=== PATIENT | female | born 1980 | race Caucasian/White ===

== ENCOUNTER 2018-12-13 12:24 | Observation (INO) | payer BC ==
[2018-12-13] MEDS ORDERED: PROTONIX 40 MG IV IV ONE ×2 (12:56→13:13)
[2018-12-13] MEDS ORDERED: MORPHINE SULFATE 2 MG INJ IV ONE (12:56)
[2018-12-13] MEDS ORDERED: Sodium Chloride 0.9% 1000 ML 1,000 ML IV STA ×2 (12:56→15:52)
[2018-12-13] MEDS ORDERED: TYLENOL 325 MG PO ONE (12:56)
[2018-12-13] MEDS ORDERED: Sodium Chloride 0.9% 1000 ML 1,000 ML ONE ×3 (13:14→20:01)
[2018-12-13] MEDS ORDERED: TYLENOL 325 MG ONE (13:14)
[2018-12-13] MEDS ORDERED: MORPHINE SULFATE 2 MG INJ ONE (13:14)
[2018-12-13 13:21] LABS: Appearance CLEAR (CLEAR); Bilirubin NEGATIVE (NEGATIVE); Blood SMALL Ery/ul (0-5); Epithelial Cells RARE /HPF (FEW); Glucose >=500 mg/dL (NEGATIVE); Ketones MODERATE (NEGATIVE); Leukocyte Esterase NEGATIVE (NEGATIVE); Mucus SLIGHT /HPF (NEGATIVE); Nitrite NEGATIVE (NEGATIVE); Protein,Urine Dip 100 (Negative); Specific Gravity 1.033 (1.005-1.025); Urobilinogen NEGATIVE mg/dL (0-1); WBC 0-2 /HPF (0-5)
[2018-12-13 13:27] LABS: Hemoglobin 13.2 gm/dl (12.0-16.0); Mean Cell Volume 82.8 fl (78-100); Mean Corpuscular Hemoglobin 28.8 pg (26-32); Mean Corpuscular Hgb Concent. 34.7 g/dl (32-36); Mean Platelet Volume 9.9 fl (6-9.5); Platelet Count 353 K/mm3 (150-450); Red Blood Count 4.59 M/mm3 (4.1-5.4); Red Cell Distribution Width 12.7 % (11.5-14.0); White Blood Count 21.9 K/mm3 (4.0-10.5)
[2018-12-13 13:32] LABS: ALBUMIN 4.1 g/dL (3.5-5.0); ALKALINE PHOSPHATASE 128 U/L (38-126); ANION GAP 17.5 MEQ/L (5-15); BLOOD UREA NITROGEN 15 mg/dL (7-17); CHLORIDE 97 mmol/L (98-107); Calcium 9.1 mg/dL (8.4-10.2); Carbon Dioxide 21 mmol/L (22-30); Creatinine 1 0.81 mg/dL (0.52-1.04); Glucose 418 mg/dL (74-106); LIPASE 20 U/L (23-300); SGOT/AST 16 U/L (14-36); SGPT/ALT 17 U/L (0-35); SODIUM 132 mmol/L (137-145); Total Protein 7.4 g/dL (6.3-8.2)
[2018-12-13 13:40] LABS: Bacteria NONE SEEN /HPF (NEGATIVE)
[2018-12-13] MEDS ORDERED: NovoLOG Insulin SQ STA (14:00)
[2018-12-13] MEDS ORDERED: NovoLOG Insulin ONE (14:04)
[2018-12-13 14:14] LABS: BAND 10 % (0.0-2.0); Lymphocytes 11 % (24-44); Monocyte 6 % (0.0-12.0); Neutrophils 73 % (36.0-66.0); Total Cells Counted 100
[2018-12-13 14:16] LABS: Platelet Estimate NORMAL (NORMAL)
[2018-12-13 14:17] LABS: Granulocyte Absolute (ANC) 18.19 (1.4-6.9)
--- NOTE | 2018-12-13 14:54 | XRAY ---
Exam: CT of the abdomen and pelvis with IV contrast from 12/13/2018. CTDI: 21.88 Comparison: None. Indication: 38-year-old female with diffuse abdominal pain, nausea, fever. Symptoms began last evening. No prior abdominal surgeries. Technique: Post-IV contrast axial images were obtained through the abdomen and pelvis during automated injection of 80 cc of Isovue-370 contrast material. No oral contrast was given. Reconstructed coronal and sagittal images were created and reviewed. Findings: The visualized lung bases appear clear. The heart size is within normal limits. The liver appears of unremarkable size and reveals a uniform attenuation. No hepatic mass or intrahepatic biliary duct distention is seen. The gallbladder is mildly distended and reveals no dense calcifications within it. No gallbladder wall thickening is seen. The spleen is of normal size and reveals no mass. The pancreas appears unremarkable. The adrenal glands appears of normal size and configuration. The kidneys are normal size and cortex thickness. No definite renal calculi, solid renal mass, or hydronephrosis is seen. The kidneys excrete contrast well on the delayed images. The opacified ureters appear unremarkable. No ureterolith is seen. Mild atherosclerotic vascular calcification is seen within the distal abdominal aorta. No abdominal aortic aneurysm or abnormal retroperitoneal lymphadenopathy is seen. There is no free intraperitoneal air. The anterior abdominal wall reveals minimal herniation of some intraperitoneal fat at the level the umbilicus on sagittal image #46. No bowel containing ventral hernia is seen. The appendix is seen at the inferior aspect of the cecum and contains some air within it. The appendix measures up to a maximum of about 6.5 mm in thickness. This is towards the upper limits of normal. I see no appendicolith, appendiceal wall thickening, or surrounding inflammatory change to suggest acute appendicitis. No abscess or abnormal fluid collection is seen. Some scattered stool is seen within the colon. No bowel distention or bowel wall thickening is seen. The uterus is anteflexed and tilted to the left of midline. Both ovaries are identified and are remarkable for a small cyst or follicle within the inferior portion of the right ovary measuring up to 1.6 cm in diameter on axial image #74 of series #2. Some calcified phleboliths are seen within the lower pelvis. The urinary bladder appears unremarkable. No free intraperitoneal fluid is seen. No enlarged pelvic lymph nodes are seen.The deep pelvic sidewalls appear normal. Some probable postinflammatory lymph nodes are seen within each groin, slightly larger on the left than right. The skeleton reveals no acute fracture or aggressive bone lesion. Some small Schmorl's nodes are seen within the vertebral endplates of the visualized lower thoracic spine. Moderate vertebral endplate spurring is seen within the lower thoracic spine. Impression: 1. A long appendix is seen which contains a small amount of air within it and measures towards the upper limits of normal in diameter (about 6.5 mm). However, I see no appendicolith, appendiceal wall thickening, or adjacent inflammatory stranding to suggest acute appendicitis. 2. In addition, I note a 1.6 cm in diameter round cyst or dominant follicle at the inferior portion of the right ovary. Otherwise, the ovaries appear unremarkable. 3. No other acute process is seen within the abdomen or pelvis. No free air or free fluid is seen. A tiny fat-containing umbilical hernia is seen.
--- NOTE | 2018-12-13 15:46 | ERPHSYRPT ---
- History of Present Illness Historian: patient Exam Limitations: no limitations Patient Subjective Stated Complaint: states right lower quad abd pain since last night. some nausea but denies vomiting/diarrhea. Triage Nursing Assessment: to room per w/c but was able to walk to bathroom per self. guarding lower abd. abd soft, tender. normal bowel sounds. Physician History: Pt is a 38 y/o with h/o DM II, that is not well controlled, but no h/o surgeries. Pt presented to the ED with RLQ abdominal pain that is getting worse. Pt has fever, and chills. Pt denies SOB and cough, no palpitations. No dysuria, frequency and urgency. Timing/Duration: yesterday Activities at Onset: none Quality: sharpness, stabbing Abdominal Pain Onset Location: RLQ, periumbilical Pain Radiation: RLQ Severity of Pain-Max: moderate Severity of Pain-Current: moderate Modifying Factors: Improves With: analgesics, movement Allergies/Adverse Reactions: codeine Adverse Reaction (Mild, Verified 12/13/18 12:45) Nausea Home Medications: Ergocalciferol (Vitamin D2) [Vitamin D] 400 unit PO DAILY 12/13/18 [History] Fluoxetine HCl 40 mg PO DAILY 12/13/18 [History] Insulin Detemir [Levemir] 60 unit SQ BID 12/13/18 [History] Insulin Lispro [Humalog] 1 unit SQ UD 12/13/18 [History] Losartan Potassium 50 mg PO DAILY 12/13/18 [History] Multivitamin [Multivitamins] 1 ea PO DAILY 12/13/18 [History] Omeprazole 20 mg PO DAILY 12/13/18 [History] Hx Tetanus, Diphtheria Vaccination/Date Given: No Hx Influenza Vaccination/Date Given: Yes Hx Pneumococcal Vaccination/Date Given: No - Review of Systems Constitutional: Fever, Chills, Malaise Eyes: No Symptoms Ears, Nose, & Throat: No Symptoms Respiratory: No Cough, No Dyspnea Cardiac: No Chest Pain, No Edema, No Syncope Abdominal/Gastrointestinal: Abdominal Pain Genitourinary Symptoms: No Dysuria Musculoskeletal: No Back Pain, No Neck Pain Neurological: No Dizziness, No Focal Weakness, No Sensory Changes - Past Medical History Pertinent Past Medical History: Yes Cardiac History: Hypertension Endocrine Medical History: Diabetes Type II GI Medical History: GERD - Past Surgical History Past Surgical History: No - Social History Smoking Status: Never smoker Exposure to second hand smoke: No Drug Use: none Patient Lives Alone: No - Female History Hx Last Menstrual Period: 11/15/18 Hx Now: No - Nursing Vital Signs Nursing Vital Signs: Initial Vital Signs Temperature 101.4 F 12/13/18 12:37 Pulse Rate 102 H 12/13/18 12:37 Respiratory Rate 16 12/13/18 12:37 Blood Pressure 177/88 12/13/18 12:37 O2 Sat by Pulse Oximetry 100 12/13/18 12:37 Pain Scale Pain Intensity 2 - Physical Exam General Appearance: no apparent distress, alert Eye Exam: PERRL/EOMI, eyes nml inspection Ears, Nose, Throat Exam: normal ENT inspection, pharynx normal, moist mucous membranes Neck Exam: normal inspection, non-tender, supple, full range of motion Respiratory Exam: normal breath sounds, lungs clear, No respiratory distress Cardiovascular Exam: regular rate/rhythm, normal heart sounds Gastrointestinal/Abdomen Exam: tenderness (RLQ, periumbilical) Extremity Exam: normal inspection, normal range of motion, pelvis stable Neurologic Exam: alert, oriented x 3, cooperative, normal mood/affect, nml cerebellar function, sensation nml, No motor deficits SpO2: 97 - Course Nursing assessment & vital signs reviewed: Yes - CT Exams Abdomen/Pelvis CT Interpretation: appendicitis (Appendics with small amount of air, and size of upper limit of normal) Ordered Tests: Active Orders 24 hr Category Date Time Status IV Insertion STAT Care 12/13/18 12:56 Active ABDOMEN AND PELVIS W CONTRAST [CT] Stat Exams 12/13/18 14:02 Completed BLOOD CULTURE Stat Lab 12/13/18 13:35 Received CBC W DIFF Stat Lab 12/13/18 13:15 Completed CMP Stat Lab 12/13/18 13:15 Completed HCG,QUALITATIVE URINE Stat Lab 12/13/18 13:15 Completed LIPASE Stat Lab 12/13/18 13:15 Completed Lactic Acid Stat Lab 12/13/18 12:56 Completed Manual Differential NC Stat Lab 12/13/18 13:15 Completed UA W/RFX UR CULTURE Stat Lab 12/13/18 13:15 Completed Medication Summary Discontinued Medications Generic Name Dose Route Start Last Admin Trade Name Freq PRN Reason Stop Dose Admin Acetaminophen 975 mg 12/13/18 12:56 12/13/18 13:20 Tylenol 325 Mg PO 12/13/18 12:57 975 mg STAT ONE Administration Acetaminophen Confirm 12/13/18 13:14 Tylenol 325 Mg Administered 12/13/18 13:15 Dose 975 mg .ROUTE .STK-MED ONE Sodium Chloride 1,000 mls @ 999 mls/hr 12/13/18 12:56 12/13/18 15:20 Sodium Chloride 0.9% 1000 Ml IV 12/13/18 13:56 Infused .Q1H1M STA Infusion Sodium Chloride Confirm 12/13/18 13:14 Sodium Chloride 0.9% 1000 Ml Administered 12/13/18 13:15 Dose 1,000 mls @ ud .ROUTE .STK-MED ONE Insulin Aspart 10 unit 12/13/18 14:00 12/13/18 14:11 Novolog Insulin SQ 12/13/18 14:01 10 unit STAT STA Administration Insulin Aspart Confirm 12/13/18 14:04 Novolog Insulin Administered 12/13/18 14:05 Dose 10 unit .ROUTE .STK-MED ONE Morphine Sulfate 2 mg 12/13/18 12:56 12/13/18 13:20 Morphine Sulfate 2 Mg Inj IV 12/13/18 12:57 2 mg STAT ONE Administration Morphine Sulfate Confirm 12/13/18 13:14 Morphine Sulfate 2 Mg Inj Administered 12/13/18 13:15 Dose 2 mg .ROUTE .STK-MED ONE Pantoprazole Sodium 40 mg 12/13/18 12:56 12/13/18 13:20 Protonix 40 Mg Iv IV 12/13/18 12:57 40 mg STAT ONE Administration Pantoprazole Sodium Confirm 12/13/18 13:13 Protonix 40 Mg Iv Administered 12/13/18 13:14 Dose 40 mg IV .STK-MED ONE Lab/Rad Data: Laboratory Result Diagrams 12/13/18 13:15 12/13/18 13:15 Laboratory Results 12/13/18 12/13/18 12/13/18 Range/Units 13:15 13:15 13:15 WBC (4.0-10.5) K/mm3 RBC (4.1-5.4) M/mm3 Hgb (12.0-16.0) gm/dl Hct (35-47) % MCV (78-100) fl MCH (26-32) pg MCHC (32-36) g/dl RDW (11.5-14.0) % Plt Count (150-450) K/mm3 MPV (6-9.5) fl Absolute Granulocytes (1.4-6.9) Segmented Neutrophils (36.0-66.0) % Band Neutrophils (0.0-2.0) % Lymphocytes (Manual) (24-44) % Monocytes (Manual) (0.0-12.0) % Platelet Estimate (NORMAL) RBC Morphology Sodium 132 L (137-145) mmol/L Potassium 4.0 (3.5-5.1) mmol/L Chloride 97 L (98-107) mmol/L Carbon Dioxide 21 L (22-30) mmol/L Anion Gap 17.5 H (5-15) MEQ/L BUN 15 (7-17) mg/dL Creatinine 0.81 (0.52-1.04) mg/dL Estimated GFR > 60.0 ML/MIN Glucose 418 H (74-106) mg/dL Lactic Acid (0.4-2.0) Calcium 9.1 (8.4-10.2) mg/dL Total Bilirubin 0.90 (0.2-1.3) mg/dL AST 16 (14-36) U/L ALT 17 (0-35) U/L Alkaline Phosphatase 128 H (38-126) U/L Serum Total Protein 7.4 (6.3-8.2) g/dL Albumin 4.1 (3.5-5.0) g/dL Lipase 20 L (23-300) U/L Urine Color YELLOW (YELLOW) Urine Appearance CLEAR (CLEAR) Urine pH 5.0 (5-6) Ur Specific [place] 1.033 (1.005-1.025) Urine Protein 100 (Negative) Urine Ketones MODERATE (NEGATIVE) Urine Blood SMALL (0-5) Onel/ul Urine Nitrite NEGATIVE (NEGATIVE) Urine Bilirubin NEGATIVE (NEGATIVE) Urine Urobilinogen NEGATIVE (0-1) mg/dL Ur Leukocyte Esterase NEGATIVE (NEGATIVE) Urine WBC (Auto) 0-2 (0-5) /HPF Urine RBC (Auto) NONE (0-2) /HPF U Epithel Cells (Auto) RARE (FEW) /HPF Urine Bacteria (Auto) NONE SEEN (NEGATIVE) /HPF Urine Mucus (Auto) SLIGHT (NEGATIVE) /HPF Urine Culture Reflexed NO (NO) Urine Glucose >=500 (NEGATIVE) mg/dL Urine HCG, Qual NEGATIVE (Negative) 12/13/18 12/13/18 Range/Units 13:15 12:56 WBC 21.9 H (4.0-10.5) K/mm3 RBC 4.59 (4.1-5.4) M/mm3 Hgb 13.2 (12.0-16.0) gm/dl Hct 38.0 (35-47) % MCV 82.8 (78-100) fl MCH 28.8 (26-32) pg MCHC 34.7 (32-36) g/dl RDW 12.7 (11.5-14.0) % Plt Count 353 (150-450) K/mm3 MPV 9.9 H (6-9.5) fl Absolute Granulocytes 18.19 H (1.4-6.9) Segmented Neutrophils 73 H (36.0-66.0) % Band Neutrophils 10 H (0.0-2.0) % Lymphocytes (Manual) 11 L (24-44) % Monocytes (Manual) 6 (0.0-12.0) % Platelet Estimate NORMAL (NORMAL) RBC Morphology NORMAL Sodium (137-145) mmol/L Potassium (3.5-5.1) mmol/L Chloride (98-107) mmol/L Carbon Dioxide (22-30) mmol/L Anion Gap (5-15) MEQ/L BUN (7-17) mg/dL Creatinine (0.52-1.04) mg/dL Estimated GFR ML/MIN Glucose (74-106) mg/dL Lactic Acid 1.8 (0.4-2.0) Calcium (8.4-10.2) mg/dL Total Bilirubin (0.2-1.3) mg/dL AST (14-36) U/L ALT (0-35) U/L Alkaline Phosphatase (38-126) U/L Serum Total Protein (6.3-8.2) g/dL Albumin (3.5-5.0) g/dL Lipase (23-300) U/L Urine Color (YELLOW) Urine Appearance (CLEAR) Urine pH (5-6) Ur Specific [place] (1.005-1.025) Urine Protein (Negative) Urine Ketones (NEGATIVE) Urine Blood (0-5) Onel/ul Urine Nitrite (NEGATIVE) Urine Bilirubin (NEGATIVE) Urine Urobilinogen (0-1) mg/dL Ur Leukocyte Esterase (NEGATIVE) Urine WBC (Auto) (0-5) /HPF Urine RBC (Auto) (0-2) /HPF U Epithel Cells (Auto) (FEW) /HPF Urine Bacteria (Auto) (NEGATIVE) /HPF Urine Mucus (Auto) (NEGATIVE) /HPF Urine Culture Reflexed (NO) Urine Glucose (NEGATIVE) mg/dL Urine HCG, Qual (Negative) - Progress Progress: unchanged Progress Note: 12/13/18 15:49 Pt presented to the ER with abdominal pain. She was found to be febrile, and had elevated WBC in the 20s. On CT there is small amount of air in the appendix. I discussed the pt with Dr Altaorre for surgery and he will perform appendectomy today at 20:00. Pt will be admitted to Dr Morales. Will start pt on Zosyn. Blood cultures were taken. Discussed with : Carmen Will see patient in: hospital (observation) - Departure Time of Disposition: 15:52 Departure Disposition: Observation Clinical Impression: Appendicitis Condition: Stable Critical Care Time: No Referrals: KENYETTA MORALES [Primary Care Provider] -
[2018-12-13] MEDS ORDERED: Zosyn 3.375GM/100 Ml D5W 3.375 GM/100 ML IVPB IV STA (15:56)
[2018-12-13] MEDS ORDERED: Sodium Chloride 0.9% 1000 ML 1,000 ML IV SCH (16:00)
[2018-12-13] MEDS ORDERED: Zosyn 3.375GM/100 Ml D5W 3.375 GM/100 ML IVPB IV ONE (16:21)
[2018-12-13] MEDS ORDERED: Lactated Ringers 1,000 ML IV SCH ×3 (17:30→18:00)
[2018-12-13] MEDS: MORPHINE SULFATE 2 MG INJ IV PRN (17:52)
[2018-12-13] MEDS ORDERED: MEFOXIN 2 GM PREMIX** 2 GM/50 ML ML IV SCH (18:00)
[2018-12-13] MEDS ORDERED: Zofran 4 MG/2 ML VIAL IV PRN ×2 (18:29→21:50)
[2018-12-13] MEDS ORDERED: Sensorcaine 0.25% 10 ML ONE (19:05)
[2018-12-13] MEDS ORDERED: Lactated Ringers 0 ML IV ONE (19:05)
[2018-12-13] MEDS ORDERED: Compazine 10 MG/2 ML ONE (19:32)
[2018-12-13] MEDS ORDERED: MEFOXIN 1 Gm/ D5W 50 Ml** 1 G/50 ML ML IV SCH (21:45)
[2018-12-13] MEDS ORDERED: TYLENOL 325 MG PO PRN (21:48)
[2018-12-13] MEDS ORDERED: NORCO 5/325 MG PO PRN (21:51)
[2018-12-13] MEDS ORDERED: D5W/0.45NS W/ 20mEq KCl 1000 ML 1,000 ML IV SCH (22:00)
[2018-12-14] MEDS ORDERED: Zosyn 3.375GM/100 Ml D5W 3.375 GM/100 ML IVPB IV SCH
[2018-12-14] MEDS: NovoLOG Insulin SQ PRN ×3 (02:42→12:03)
[2018-12-14] MEDS: MEFOXIN 1 Gm/ D5W 50 Ml** 1 G/50 ML ML IV SCH ×2 (04:22→04:31)
[2018-12-14] MEDS: MORPHINE SULFATE 2 MG INJ IV PRN (04:35)
[2018-12-14 05:48] LABS: Hematocrit 32.9 % (35-47); Mean Cell Volume 85.5 fl (78-100); Mean Corpuscular Hgb Concent. 33.4 g/dl (32-36); Mean Platelet Volume 9.4 fl (6-9.5); Platelet Count 313 K/mm3 (150-450); Red Blood Count 3.85 M/mm3 (4.1-5.4); Red Cell Distribution Width 12.8 % (11.5-14.0); White Blood Count 19.1 K/mm3 (4.0-10.5)
[2018-12-14 06:00] LABS: Mean Corpuscular Hemoglobin 28.5 pg (26-32)
[2018-12-14 06:03] LABS: ANION GAP 11.6 MEQ/L (5-15); BLOOD UREA NITROGEN 12 mg/dL (7-17); CHLORIDE 107 mmol/L (98-107); Calcium 7.5 mg/dL (8.4-10.2); Carbon Dioxide 20 mmol/L (22-30); Creatinine 1 0.83 mg/dL (0.52-1.04); Glucose 279 mg/dL (74-106); Potassium 3.7 mmol/L (3.5-5.1); SODIUM 135 mmol/L (137-145)
--- NOTE | 2018-12-14 07:53 | PCM.SSS ---
History of Present Illness - Chief Complaint Chief Complaint: appendicitis History of Present Illness: is a 38 year old female patient of Dr Morales who presented to ER yesterday with acute onset of right lower quad pain, found to have enlarged appendix with air in it, no stranding etc. had laparoscopic appendectomy by Dr Alatorre, current on cefoxitin IV, she has some pain which is controlled, so far tolerating clear liquids and ambulating with no complications. - Review of Systems Constitutional: No Fever, No Chills Respiratory: No Cough, No Short Of Breath Cardiac: No Chest Pain, No Edema, No Syncope Abdominal/Gastrointestinal: Abdominal Pain, No Nausea, No Vomiting, No Diarrhea Genitourinary Symptoms: No Dysuria Skin: No Rash All Other Systems: Reviewed and Negative Medications & Allergies Home Medications: Home Medication List Ergocalciferol (Vitamin D2) [Vitamin D] 400 unit PO DAILY 12/13/18 [History Confirmed 12/13/18] Fluoxetine HCl 40 mg PO DAILY 12/13/18 [History Confirmed 12/13/18] Insulin Detemir [Levemir] 60 unit SQ BID 12/13/18 [History Confirmed 12/13/18] Insulin Lispro [Humalog] 1 unit SQ UD 12/13/18 [History Confirmed 12/13/18] Losartan Potassium 50 mg PO DAILY 12/13/18 [History Confirmed 12/13/18] Multivitamin [Multivitamins] 1 ea PO DAILY 12/13/18 [History Confirmed 12/13/18] Omeprazole 20 mg PO DAILY 12/13/18 [History Confirmed 12/13/18] Allergies/Adverse Reactions: Allergies Allergy/AdvReac Type Severity Reaction Status Date / Time codeine AdvReac Mild Nausea Verified 12/13/18 12:45 - Past Medical History Past Medical History: Yes Neurological History: No Pertinent History ENT History: No Pertinent History Cardiac History: Hypertension Respiratory History: No Pertinent History Endocrine Medical History: Diabetes Type II Musculoskelatal History: No Pertinent History GI Medical History: GERD History: No Pertinent History Pyscho-Social History: Anxiety, Depression Reproductive Disorders: No Pertinent History - Female History Hx Last Menstrual Period: 11/15/18 Are you now?: No - Past Surgical History Past Surgical History: No - Social History Smoking Status: Never smoker Exposure to second hand smoke: Yes Alcohol: None Drug Use: none - Physical Exam Vital Signs: Vital Signs - 24 hr Temp Pulse Resp BP Pulse Ox 12/14/18 07:15 98 F 68 18 130/66 97 12/14/18 06:00 98.1 F 100 H 16 130/67 99 12/14/18 00:45 98.2 F 94 H 20 112/59 99 12/13/18 23:45 97.9 F 94 H 20 120/63 99 12/13/18 22:45 98.1 F 94 H 20 115/55 99 12/13/18 22:15 98.7 F 96 H 20 111/55 98 12/13/18 21:45 99 F 98 H 22 105/54 98 12/13/18 21:30 98.9 F 97 H 22 109/55 97 12/13/18 21:15 98.8 F 97 H 21 106/51 97 12/13/18 21:00 99.6 F 104 H 22 125/60 96 12/13/18 20:34 99.8 F 102 H 18 142/65 95 12/13/18 17:39 99.9 F 105 H 18 140/76 97 12/13/18 16:44 99.9 F 105 H 18 140/76 97 12/13/18 16:34 99.9 F 105 H 18 140/76 97 12/13/18 16:00 99.9 F 105 H 18 140/76 97 12/13/18 15:53 97 12/13/18 15:22 111 H 16 115/74 97 12/13/18 14:44 100.6 F 12/13/18 14:16 103 H 16 134/86 99 12/13/18 12:37 101.4 F 102 H 16 177/88 100 Oxygen-Last 24 hours O2 Percentage 2 Liters = 28% O2 Percentage 2 Liters = 28% O2 Percentage 2 Liters = 28% O2 Percentage 2 Liters = 28% O2 Percentage 2 Liters = 28% O2 Percentage 2 Liters = 28% O2 Percentage 2 Liters = 28% O2 Percentage 2 Liters = 28% Oxygen Flowrate (L/min)-RT 2 General Appearance: no apparent distress, obese Neurologic Exam: alert, oriented x 3 Respiratory Exam: normal breath sounds, lungs clear, No respiratory distress Cardiovascular Exam: regular rate/rhythm, normal heart sounds, normal peripheral pulses Gastrointestinal/Abdomen Exam: soft, other (port site dressings clean/dry/intact , obese soft abdomen, no guarding or rebound) Extremity Exam: normal inspection, normal range of motion, pelvis stable Skin Exam: normal color, warm, dry, No rash Results - Labs Lab/Micro Results: Accuchecks Accucheck Value: 403 Accucheck Value: 196 Accucheck Value: 228 Lab Results-Last 24 Hours 12/13/18 12/13/18 12/13/18 Range/Units 12:56 13:15 13:15 WBC 21.9 H (4.0-10.5) K/mm3 RBC 4.59 (4.1-5.4) M/mm3 Hgb 13.2 (12.0-16.0) gm/dl Hct 38.0 (35-47) % MCV 82.8 (78-100) fl MCH 28.8 (26-32) pg MCHC 34.7 (32-36) g/dl RDW 12.7 (11.5-14.0) % Plt Count 353 (150-450) K/mm3 MPV 9.9 H (6-9.5) fl Absolute Granulocytes 18.19 H (1.4-6.9) Segmented Neutrophils 73 H (36.0-66.0) % Band Neutrophils 10 H (0.0-2.0) % Lymphocytes (Manual) 11 L (24-44) % Monocytes (Manual) 6 (0.0-12.0) % Platelet Estimate NORMAL (NORMAL) RBC Morphology NORMAL Sodium 132 L (137-145) mmol/L Potassium 4.0 (3.5-5.1) mmol/L Chloride 97 L (98-107) mmol/L Carbon Dioxide 21 L (22-30) mmol/L Anion Gap 17.5 H (5-15) MEQ/L BUN 15 (7-17) mg/dL Creatinine 0.81 (0.52-1.04) mg/dL Estimated GFR > 60.0 ML/MIN Glucose 418 H (74-106) mg/dL Lactic Acid 1.8 (0.4-2.0) Calcium 9.1 (8.4-10.2) mg/dL Total Bilirubin 0.90 (0.2-1.3) mg/dL AST 16 (14-36) U/L ALT 17 (0-35) U/L Alkaline Phosphatase 128 H (38-126) U/L Serum Total Protein 7.4 (6.3-8.2) g/dL Albumin 4.1 (3.5-5.0) g/dL Lipase 20 L (23-300) U/L Urine Color (YELLOW) Urine Appearance (CLEAR) Urine pH (5-6) Ur Specific [place] (1.005-1.025) Urine Protein (Negative) Urine Ketones (NEGATIVE) Urine Blood (0-5) Onel/ul Urine Nitrite (NEGATIVE) Urine Bilirubin (NEGATIVE) Urine Urobilinogen (0-1) mg/dL Ur Leukocyte Esterase (NEGATIVE) Urine WBC (Auto) (0-5) /HPF Urine RBC (Auto) (0-2) /HPF U Epithel Cells (Auto) (FEW) /HPF Urine Bacteria (Auto) (NEGATIVE) /HPF Urine Mucus (Auto) (NEGATIVE) /HPF Urine Culture Reflexed (NO) Urine Glucose (NEGATIVE) mg/dL Urine HCG, Qual (Negative) 12/13/18 12/13/18 12/14/18 Range/Units 13:15 13:15 05:25 WBC (4.0-10.5) K/mm3 RBC (4.1-5.4) M/mm3 Hgb (12.0-16.0) gm/dl Hct (35-47) % MCV (78-100) fl MCH (26-32) pg MCHC (32-36) g/dl RDW (11.5-14.0) % Plt Count (150-450) K/mm3 MPV (6-9.5) fl Absolute Granulocytes (1.4-6.9) Segmented Neutrophils (36.0-66.0) % Band Neutrophils (0.0-2.0) % Lymphocytes (Manual) (24-44) % Monocytes (Manual) (0.0-12.0) % Platelet Estimate (NORMAL) RBC Morphology Sodium 135 L (137-145) mmol/L Potassium 3.7 (3.5-5.1) mmol/L Chloride 107 (98-107) mmol/L Carbon Dioxide 20 L (22-30) mmol/L Anion Gap 11.6 (5-15) MEQ/L BUN 12 (7-17) mg/dL Creatinine 0.83 (0.52-1.04) mg/dL Estimated GFR > 60.0 ML/MIN Glucose 279 H (74-106) mg/dL Lactic Acid (0.4-2.0) Calcium 7.5 L D (8.4-10.2) mg/dL Total Bilirubin (0.2-1.3) mg/dL AST (14-36) U/L ALT (0-35) U/L Alkaline Phosphatase (38-126) U/L Serum Total Protein (6.3-8.2) g/dL Albumin (3.5-5.0) g/dL Lipase (23-300) U/L Urine Color YELLOW (YELLOW) Urine Appearance CLEAR (CLEAR) Urine pH 5.0 (5-6) Ur Specific [place] 1.033 (1.005-1.025) Urine Protein 100 (Negative) Urine Ketones MODERATE (NEGATIVE) Urine Blood SMALL (0-5) Onel/ul Urine Nitrite NEGATIVE (NEGATIVE) Urine Bilirubin NEGATIVE (NEGATIVE) Urine Urobilinogen NEGATIVE (0-1) mg/dL Ur Leukocyte Esterase NEGATIVE (NEGATIVE) Urine WBC (Auto) 0-2 (0-5) /HPF Urine RBC (Auto) NONE (0-2) /HPF U Epithel Cells (Auto) RARE (FEW) /HPF Urine Bacteria (Auto) NONE SEEN (NEGATIVE) /HPF Urine Mucus (Auto) SLIGHT (NEGATIVE) /HPF Urine Culture Reflexed NO (NO) Urine Glucose >=500 (NEGATIVE) mg/dL Urine HCG, Qual NEGATIVE (Negative) 12/14/18 Range/Units 05:25 WBC 19.1 H (4.0-10.5) K/mm3 RBC 3.85 L (4.1-5.4) M/mm3 Hgb 11.0 L (12.0-16.0) gm/dl Hct 32.9 L (35-47) % MCV 85.5 (78-100) fl MCH 28.5 (26-32) pg MCHC 33.4 (32-36) g/dl RDW 12.8 (11.5-14.0) % Plt Count 313 (150-450) K/mm3 MPV 9.4 (6-9.5) fl Absolute Granulocytes (1.4-6.9) Segmented Neutrophils (36.0-66.0) % Band Neutrophils (0.0-2.0) % Lymphocytes (Manual) (24-44) % Monocytes (Manual) (0.0-12.0) % Platelet Estimate (NORMAL) RBC Morphology Sodium (137-145) mmol/L Potassium (3.5-5.1) mmol/L Chloride (98-107) mmol/L Carbon Dioxide (22-30) mmol/L Anion Gap (5-15) MEQ/L BUN (7-17) mg/dL Creatinine (0.52-1.04) mg/dL Estimated GFR ML/MIN Glucose (74-106) mg/dL Lactic Acid (0.4-2.0) Calcium (8.4-10.2) mg/dL Total Bilirubin (0.2-1.3) mg/dL AST (14-36) U/L ALT (0-35) U/L Alkaline Phosphatase (38-126) U/L Serum Total Protein (6.3-8.2) g/dL Albumin (3.5-5.0) g/dL Lipase (23-300) U/L Urine Color (YELLOW) Urine Appearance (CLEAR) Urine pH (5-6) Ur Specific [place] (1.005-1.025) Urine Protein (Negative) Urine Ketones (NEGATIVE) Urine Blood (0-5) Onel/ul Urine Nitrite (NEGATIVE) Urine Bilirubin (NEGATIVE) Urine Urobilinogen (0-1) mg/dL Ur Leukocyte Esterase (NEGATIVE) Urine WBC (Auto) (0-5) /HPF Urine RBC (Auto) (0-2) /HPF U Epithel Cells (Auto) (FEW) /HPF Urine Bacteria (Auto) (NEGATIVE) /HPF Urine Mucus (Auto) (NEGATIVE) /HPF Urine Culture Reflexed (NO) Urine Glucose (NEGATIVE) mg/dL Urine HCG, Qual (Negative) Accuchecks Accucheck Value: 403 Accucheck Value: 196 Accucheck Value: 228 - Radiology Impressions Radiology Exams & Impressions: Radiology Procedures Category Date Time Status ABDOMEN AND PELVIS W CONTRAST [CT] Stat Exams 12/13/18 14:02 Completed - Other Procedures and Tests Respiratory Therapy 12/14/18 06:25 Incentive Spirometry TID Respiratory Therapy Assessment DAILY Assessment/Plan (1) Appendicitis Current Visit: Yes Status: Acute Assessment & Plan: wbc improved but still elevated, continue cefoxitin, will discharge when cleared by surgery, otherwise continue current regimen. Code(s): K37 - UNSPECIFIED APPENDICITIS Hospital Summary - Vitals & Intake/Output Vital Signs: Vital Signs Temperature 98 F 12/14/18 07:15 Pulse Rate 68 12/14/18 07:15 Respiratory Rate 18 12/14/18 07:15 Blood Pressure 130/66 12/14/18 07:15 O2 Sat by Pulse Oximetry 97 12/14/18 07:15 Oxygen-Last Documented O2 Percentage 2 Liters = 28% Intake & Output: Intake & Output 12/11/18 12/12/18 12/13/18 12/14/18 11:59 11:59 11:59 11:59 Intake Total 2104 Output Total 550 Balance 1554 Weight 85.7 kg - Lab Result Diagrams: 12/14/18 05:25 12/14/18 05:25 Lab Results-Last 24 Hrs: Accuchecks Accucheck Value: 403 Accucheck Value: 196 Accucheck Value: 228 Lab Results-Last 24 Hours 12/13/18 12/13/18 12/13/18 Range/Units 12:56 13:15 13:15 WBC 21.9 H (4.0-10.5) K/mm3 RBC 4.59 (4.1-5.4) M/mm3 Hgb 13.2 (12.0-16.0) gm/dl Hct 38.0 (35-47) % MCV 82.8 (78-100) fl MCH 28.8 (26-32) pg MCHC 34.7 (32-36) g/dl RDW 12.7 (11.5-14.0) % Plt Count 353 (150-450) K/mm3 MPV 9.9 H (6-9.5) fl Absolute Granulocytes 18.19 H (1.4-6.9) Segmented Neutrophils 73 H (36.0-66.0) % Band Neutrophils 10 H (0.0-2.0) % Lymphocytes (Manual) 11 L (24-44) % Monocytes (Manual) 6 (0.0-12.0) % Platelet Estimate NORMAL (NORMAL) RBC Morphology NORMAL Sodium 132 L (137-145) mmol/L Potassium 4.0 (3.5-5.1) mmol/L Chloride 97 L (98-107) mmol/L Carbon Dioxide 21 L (22-30) mmol/L Anion Gap 17.5 H (5-15) MEQ/L BUN 15 (7-17) mg/dL Creatinine 0.81 (0.52-1.04) mg/dL Estimated GFR > 60.0 ML/MIN Glucose 418 H (74-106) mg/dL Lactic Acid 1.8 (0.4-2.0) Calcium 9.1 (8.4-10.2) mg/dL Total Bilirubin 0.90 (0.2-1.3) mg/dL AST 16 (14-36) U/L ALT 17 (0-35) U/L Alkaline Phosphatase 128 H (38-126) U/L Serum Total Protein 7.4 (6.3-8.2) g/dL Albumin 4.1 (3.5-5.0) g/dL Lipase 20 L (23-300) U/L Urine Color (YELLOW) Urine Appearance (CLEAR) Urine pH (5-6) Ur Specific [place] (1.005-1.025) Urine Protein (Negative) Urine Ketones (NEGATIVE) Urine Blood (0-5) Onel/ul Urine Nitrite (NEGATIVE) Urine Bilirubin (NEGATIVE) Urine Urobilinogen (0-1) mg/dL Ur Leukocyte Esterase (NEGATIVE) Urine WBC (Auto) (0-5) /HPF Urine RBC (Auto) (0-2) /HPF U Epithel Cells (Auto) (FEW) /HPF Urine Bacteria (Auto) (NEGATIVE) /HPF Urine Mucus (Auto) (NEGATIVE) /HPF Urine Culture Reflexed (NO) Urine Glucose (NEGATIVE) mg/dL Urine HCG, Qual (Negative) 12/13/18 12/13/18 12/14/18 Range/Units 13:15 13:15 05:25 WBC (4.0-10.5) K/mm3 RBC (4.1-5.4) M/mm3 Hgb (12.0-16.0) gm/dl Hct (35-47) % MCV (78-100) fl MCH (26-32) pg MCHC (32-36) g/dl RDW (11.5-14.0) % Plt Count (150-450) K/mm3 MPV (6-9.5) fl Absolute Granulocytes (1.4-6.9) Segmented Neutrophils (36.0-66.0) % Band Neutrophils (0.0-2.0) % Lymphocytes (Manual) (24-44) % Monocytes (Manual) (0.0-12.0) % Platelet Estimate (NORMAL) RBC Morphology Sodium 135 L (137-145) mmol/L Potassium 3.7 (3.5-5.1) mmol/L Chloride 107 (98-107) mmol/L Carbon Dioxide 20 L (22-30) mmol/L Anion Gap 11.6 (5-15) MEQ/L BUN 12 (7-17) mg/dL Creatinine 0.83 (0.52-1.04) mg/dL Estimated GFR > 60.0 ML/MIN Glucose 279 H (74-106) mg/dL Lactic Acid (0.4-2.0) Calcium 7.5 L D (8.4-10.2) mg/dL Total Bilirubin (0.2-1.3) mg/dL AST (14-36) U/L ALT (0-35) U/L Alkaline Phosphatase (38-126) U/L Serum Total Protein (6.3-8.2) g/dL Albumin (3.5-5.0) g/dL Lipase (23-300) U/L Urine Color YELLOW (YELLOW) Urine Appearance CLEAR (CLEAR) Urine pH 5.0 (5-6) Ur Specific [place] 1.033 (1.005-1.025) Urine Protein 100 (Negative) Urine Ketones MODERATE (NEGATIVE) Urine Blood SMALL (0-5) Onel/ul Urine Nitrite NEGATIVE (NEGATIVE) Urine Bilirubin NEGATIVE (NEGATIVE) Urine Urobilinogen NEGATIVE (0-1) mg/dL Ur Leukocyte Esterase NEGATIVE (NEGATIVE) Urine WBC (Auto) 0-2 (0-5) /HPF Urine RBC (Auto) NONE (0-2) /HPF U Epithel Cells (Auto) RARE (FEW) /HPF Urine Bacteria (Auto) NONE SEEN (NEGATIVE) /HPF Urine Mucus (Auto) SLIGHT (NEGATIVE) /HPF Urine Culture Reflexed NO (NO) Urine Glucose >=500 (NEGATIVE) mg/dL Urine HCG, Qual NEGATIVE (Negative) 12/14/18 Range/Units 05:25 WBC 19.1 H (4.0-10.5) K/mm3 RBC 3.85 L (4.1-5.4) M/mm3 Hgb 11.0 L (12.0-16.0) gm/dl Hct 32.9 L (35-47) % MCV 85.5 (78-100) fl MCH 28.5 (26-32) pg MCHC 33.4 (32-36) g/dl RDW 12.8 (11.5-14.0) % Plt Count 313 (150-450) K/mm3 MPV 9.4 (6-9.5) fl Absolute Granulocytes (1.4-6.9) Segmented Neutrophils (36.0-66.0) % Band Neutrophils (0.0-2.0) % Lymphocytes (Manual) (24-44) % Monocytes (Manual) (0.0-12.0) % Platelet Estimate (NORMAL) RBC Morphology Sodium (137-145) mmol/L Potassium (3.5-5.1) mmol/L Chloride (98-107) mmol/L Carbon Dioxide (22-30) mmol/L Anion Gap (5-15) MEQ/L BUN (7-17) mg/dL Creatinine (0.52-1.04) mg/dL Estimated GFR ML/MIN Glucose (74-106) mg/dL Lactic Acid (0.4-2.0) Calcium (8.4-10.2) mg/dL Total Bilirubin (0.2-1.3) mg/dL AST (14-36) U/L ALT (0-35) U/L Alkaline Phosphatase (38-126) U/L Serum Total Protein (6.3-8.2) g/dL Albumin (3.5-5.0) g/dL Lipase (23-300) U/L Urine Color (YELLOW) Urine Appearance (CLEAR) Urine pH (5-6) Ur Specific [place] (1.005-1.025) Urine Protein (Negative) Urine Ketones (NEGATIVE) Urine Blood (0-5) Onel/ul Urine Nitrite (NEGATIVE) Urine Bilirubin (NEGATIVE) Urine Urobilinogen (0-1) mg/dL Ur Leukocyte Esterase (NEGATIVE) Urine WBC (Auto) (0-5) /HPF Urine RBC (Auto) (0-2) /HPF U Epithel Cells (Auto) (FEW) /HPF Urine Bacteria (Auto) (NEGATIVE) /HPF Urine Mucus (Auto) (NEGATIVE) /HPF Urine Culture Reflexed (NO) Urine Glucose (NEGATIVE) mg/dL Urine HCG, Qual (Negative) Micro Results-Entire Visit: Accuchecks Accucheck Value: 403 Accucheck Value: 196 Accucheck Value: 228 - Radiology Exams Ordered Rad Exams-Entire Visit: Radiology Procedures Category Date Time Status ABDOMEN AND PELVIS W CONTRAST [CT] Stat Exams 12/13/18 14:02 Completed - Procedures and Test Procedures and Tests throughout Hospitalization: Therapy Orders & Screens 12/14/18 06:25 Incentive Spirometry TID Comment: Diagnosis: appendicitis Respiratory Therapy Assessment DAILY Comment: Diagnosis: appendicitis - Discharge Disposition: Home, Self-Care Condition: Stable Prescriptions: No Action Omeprazole 20 mg PO DAILY Losartan Potassium 50 mg PO DAILY Insulin Lispro [Humalog] 1 unit SQ UD Insulin Detemir [Levemir] 60 unit SQ BID Fluoxetine HCl 40 mg PO DAILY Ergocalciferol (Vitamin D2) [Vitamin D] 400 unit PO DAILY Multivitamin [Multivitamins] 1 ea PO DAILY Follow up with: KENYETTA MORALES [Primary Care Provider] - 1 Week
[2018-12-14] MEDS ORDERED: Cozaar 50 MG PO SCH (10:00)
[2018-12-14] MEDS ORDERED: Prozac 20 MG PO SCH (10:00)
[2018-12-14] MEDS ORDERED: Protonix 40MG Tablet PO SCH (10:00)
[2018-12-14 12:35] VITALS: BP 132/60; PULSE 99; O2SAT 95
[2018-12-14] MEDS ORDERED: Versed 2 MG/2 ML Injection IV ONE (14:14)
[2018-12-14] MEDS ORDERED: Quelicin Fliptop 200 MG/10 ML IV ONE (14:14)
[2018-12-14] MEDS ORDERED: DIPRIVAN 200 MG/20 ML IV ONE (14:14)
[2018-12-14] MEDS ORDERED: BRIDION 200MG/2ML IV ONE (14:14)
[2018-12-14] MEDS ORDERED: Zemuron 100 MG/10 ML IV ONE (14:14)
[2018-12-14] MEDS ORDERED: SUBLIMAZE 250 MCG/5 ML IV ONE (14:14)
[2018-12-14] MEDS ORDERED: TORAdol 30 mg Injection IV ONE (14:14)
--- NOTE | 2018-12-16 08:43 | CONS ---
CONSULT DATE: 12/13/2018 REASON FOR CONSULT: Probable appendicitis. HISTORY: The patient has right lower quadrant pain, low grade temperature, elevated white count. CT consistent with appendicitis. PAST MEDICAL HISTORY: ALLERGIES: NONE. MEDICATIONS: Per list. PAST SURGICAL HISTORY: None. SOCIAL HISTORY: Negative. FAMILY HISTORY: Negative. REVIEW OF SYSTEMS: Hypertension, GERD, diabetes mellitus type 2. PHYSICAL EXAMINATION: Mildly obese. Vital signs normal. CHEST: Clear. COR: Regular. ABDOMEN: Tender. LAB DATA AND TESTS: White count elevated. IMPRESSION: Acute appendicitis. PLAN: Laparoscopic appendectomy.
--- NOTE | 2018-12-16 08:50 | OP ---
SURGERY DATE/TIME: 12/13/20181941 PREOPERATIVE DIAGNOSIS: Acute appendicitis. POSTOPERATIVE DIAGNOSIS: Acute appendicitis. PROCEDURE: Laparoscopic appendectomy. SURGEON: Ludwin Alatorre M.D. ANESTHESIA: General. COMPLICATIONS: None. CONDITION: Stable. INDICATION: A patient with right lower extremity pain, white count 20,000. DESCRIPTION OF PROCEDURE: Taken to surgery. General anesthetic. Routine prep and drape. Veress needle inserted. Opening pressure of 1 and insufflating pressure 14. Two - 5's and one - 12. Significant adipose tissue. The appendix was in the right lower quadrant. The tip was seen. It was rolled up. The mesentery was acute. Mesentery taken with 2.5 vascular cartridge. Base taken with 2.5 vascular cartridge. Hemostasis excellent. Appendix placed in a condom bag and removed without violation. Hole closure device was used with 0 Vicryl. Skin closed with axel. Sterile dressing applied. The patient tolerated the procedure satisfactorily.
== END 2018-12-14 14:15 | disposition home or self-care (01) ==
LOC: ED 12:24 → MED SURG 16:29
PROVIDERS: ADMIT Family Medicine; ATTEND Family Medicine
DX: K35.80 Unspecified acute appendicitis (principal); I10 Essential (primary) hypertension; E11.9 Type 2 diabetes mellitus without complications; Z79.4 Long term (current) use of insulin; Z79.899 Other long term (current) drug therapy
CPT/HCPCS: 36000; 36415; 44970; 74177; 80048; 80053; 81001; 82962; 83605; 83690; 84703; 85025; 85027; 87040; 96360; 96365; 96372; 96374; 96375; 99285; G0378; J0330; J0694; J1885; J2250; J2270; J2405; J2543; J2704; J3010; A9270-GY